=== PATIENT | female | born 1955 | race Native Hawaiian/Other Pacific Islander ===

== ENCOUNTER 2020-03-07 13:07 | Emergency (ER) | payer OTHER ==
[~2020-03-07] VITALS: Ht 167.6 cm; Wt 831.4 kg
[2020-03-07 14:37] LABS: PLATELET COUNT 135 K/uL (152-353)
[2020-03-07 14:39] LABS: POTASSIUM 4.1 mmol/L (3.6-5.2)
[2020-03-07 16:30] VITALS: BP 124/75; TEMP 97.6
== END 2020-03-07 16:30 | disposition home or self-care (01) ==
LOC: ED 13:07
PROVIDERS: Hospitalist
DX: K27.9 Peptic ulcer, site unspecified, unspecified as acute or chronic, without hemorrhage or perforation (principal); K21.9 Gastro-esophageal reflux disease without esophagitis; K82.8 Other specified diseases of gallbladder
CPT/HCPCS: 80053; 81000; 82150; 83690; 85027; 93005; 96372; 99283; J1885